=== PATIENT | male | born 1950 | race Caucasian/White ===

== ENCOUNTER 2019-05-08 07:33 | Emergency (ER) | payer MEDICARE ==
[~2019-05-08] VITALS: Ht 185.4 cm; Wt 81.0 kg
[2019-05-08 07:35] VITALS: BP 129/63
[2019-05-08] MEDS ORDERED: PRED20TA PO (07:49)
[2019-05-08] MEDS ORDERED: predniSONE 20 mg tablet PO ONE (07:50)
== END 2019-05-08 08:02 | disposition home or self-care (01) ==
LOC: ER 07:33
DX: L23.7 Allergic contact dermatitis due to plants, except food (principal); Z79.899 Other long term (current) drug therapy
CPT/HCPCS: 99283; J7512

== ENCOUNTER 2022-04-04 05:37 | Inpatient (IN) | payer MEDICARE, OTHER ==
[2022-03-28 10:37] LABS: BASOPHILS # (AUTO) 0.1 X10'3 (0-0.2); BASOPHILS % (AUTO) 0.7 % (0-1); EOSINOPHILS # (AUTO) 0.1 X10'3 (0-0.9); EOSINOPHILS % (AUTO) 1.9 % (0-6); LYMPHOCYTES # (AUTO) 1.8 X10'3 (1.1-4.8); LYMPHOCYTES % (AUTO) 24.9 % (21-51); MEAN CORPUSCULAR HGB CONC 33.8 g/dL (33.0-36.5); MEAN CORPUSCULAR VOLUME 91.6 FL (78-98); MEAN PLATELET VOLUME 7.3 FL (7.4-10.4); MONOCYTES # (AUTO) 0.6 X10'3 (0-0.9); NEUTROPHILS # (AUTO) 4.6 X10'3 (1.8-7.7); NEUTROPHILS % (AUTO) 63.5 % (42-75); PRE OP HEMATOCRIT 50.9 % (42.0-52.0); PRE OP HEMOGLOBIN 17.2 g/dL (14.0-17.9); PRE OP PLATELET COUNT 253 X10'3 (140-440); RED BLOOD COUNT 5.56 X10'6 (4.70-6.10)
[2022-03-28 11:00] LABS: ALBUMIN/GLOBULIN RATIO 1.1 (1.1-1.5); ALKALINE PHOSPHATASE 46 IU/L (46-116); BLOOD UREA NITROGEN 16 MG/DL (7-18); BUN/CREATININE RATIO 14.7 (5.4-32.0); CALCIUM 8.9 MG/DL (8.5-10.1); CHLORIDE 104 MMOL/L (99-107); CREATININE 1.09 MG/DL (0.60-1.10); PRE OP ALT 23 U/L (30-65); PRE OP ANION GAP 8 (8-16); PRE OP AST 17 U/L (10-37); PRE OP BILIRUB, TOTAL 0.7 MG/DL (0.0-1.0); PRE OP GLUCOSE 112 MG/DL (70-104); PRE OP POTASSIUM 4.2 MMOL/L (3.4-5.1); PRE OP SODIUM 139 MMOL/L (135-145); TOTAL CARBON DIOXIDE 26.9 MMOL/L (24-32); TOTAL PROTEIN 7.5 G/DL (6.4-8.2); eGFR 66 ML/MIN
[2022-03-28 11:46] LABS: PRE OP PROTIME 10.7 SECONDS (9.0-12.0)
[2022-04-04] VITALS (19 sets, daily range): BP systolic 93–131; BP diastolic 48–79
[~2022-04-04] VITALS: Ht 175.3 cm; Wt 109.8 kg
[~2022-04-04 05:37] MED LIST: SIMV-42 PO; acetaminophen 325mg tablet PO ONE; ceFAZolin inj. 2,000 MG in dextrose 5%-water 100 ML IV ONE; celeCOXIB 100mg capsule PO ONE; famotidine 20mg tablet PO ONE; gabapentin 300mg capsule PO ONE; metoclopramide 5 mg/ml inj IV ONE; oxyCODONE SR 10mg (sust. release) tab -2 tabs (20mg) PO ONE; ringers solution, lacted 1,000 ML IV SCH; tranexamic acid inj. 1,000 MG in normal saline 100ml IV soln 90 ML IV ONE; vancomycin 1,500 MG in NS 300ml IV soln IV ONE
--- NOTE | 2022-04-04 06:30 | NUR ---
PTS CSM INTACT, PULSES STRONG AND MARKED, PT STATES HE READ HIS BOOK ON JOINT REPLACEMENT AND TOOK ALL OF HIS SHOWERS PER SURGICAL PROTOCOL. Addendum: 04/04/22 at 1253 by Ashley Venegas RN Amended: Links added.
[2022-04-04] MEDS ORDERED: ondansetron/PF 4mg/2ml inj IV PRN ×2 (06:35→07:50)
[2022-04-04] MEDS ORDERED: acetaminophen 325mg tablet PO PRN (06:35)
[2022-04-04] MEDS ORDERED: magnesium hydroxide 30ml (MOM) UD suspension PO PRN (06:35)
[2022-04-04] MEDS ORDERED: bisacodyl 10mg suppository rectal RC PRN (06:35)
[2022-04-04] MEDS ORDERED: HYDROcodone/acetaminophen 10/325mg tab PO PRN (06:35)
[2022-04-04] MEDS ORDERED: HYDROmorphone inj. 0.5 MG/0.5 ML DISP.SYRIN IV PRN (06:35)
[2022-04-04] MEDS ORDERED: HYDROmorphone 1 mg/ml syringe IV PRN (06:35)
[2022-04-04] MEDS ORDERED: naloxone 0.4 mg/ml inj IV PRN (06:35)
[2022-04-04] MEDS ORDERED: diphenhydrAMINE 25mg capsule PO PRN ×2 (06:35)
[2022-04-04] MEDS ORDERED: ROPIVAcaine 0.5% (5mg/ml) 30ml vial ONE (06:39)
[2022-04-04] MEDS ORDERED: vancomycin 1,000mg inj ONE (06:39)
[2022-04-04] MEDS ORDERED: cloNIDine hcl/PF 100mcg/ml inj ONE (06:39)
[2022-04-04] MEDS ORDERED: epiNEPHrine 1 mg/ml inj ONE (06:39)
[2022-04-04] MEDS ORDERED: ketorolac trometh. 30mg/ml inj. ONE (06:39)
[2022-04-04] MEDS ORDERED: MIDAZolam 1mg/ml 10ml vial ONE ×2 (07:05→07:50)
[2022-04-04] MEDS ORDERED: fentaNYL/PF 50MCG/1 ML 2ML syringe ONE (07:15)
[2022-04-04] MEDS ORDERED: labetalol 20mg/4ml (5mg/ml) syringe IV PRN (07:50)
[2022-04-04] MEDS ORDERED: morphine 2 MG/ML inj. syringe IV PRN (07:50)
[2022-04-04] MEDS ORDERED: fentaNYL/PF 50MCG/1 ML 2ML syringe IV PRN ×2 (07:50)
[2022-04-04] MEDS ORDERED: hydrALAZINE 20mg/ml inj. IV PRN (07:50)
[2022-04-04] MEDS ORDERED: morphine 4 MG/ML inj SYRINge IV PRN (07:50)
[2022-04-04] MEDS ORDERED: ringers solution, lacted 1,000 ML IV SCH (07:50)
[2022-04-04] MEDS: gabapentin 300mg capsule PO SCH ×3 (08:00→21:33)
--- NOTE | 2022-04-04 08:39 | NUR ---
Received from OR via ORTHO BED WITH PAKIRSTEN , accompanied by Anesthesiologist NADYA and report given by Anesthesiolgist. PATIENT WITH 18G PIV IN LEFT BUENO ND RUNNING LR AT 100. LEFT HIP DRESSING/LINDY IN PLACE NO LEAKS EVIDENT AT THIS TIME. + DP TO LEFT FOOT. SCDS DONNED. VSS. 10L MASK ON WITH 100% SATURATIONS. Addendum: 04/04/22 at 0902 by Jake Jacobo RN, RN Amended: Links added.
--- NOTE | 2022-04-04 09:59 | NUR ---
Report called to receiving nurse. Transferred via ORTHO BED WITH [facility]FT .NO Belongings . HAS ALL BELONGINGS. Special Issues communicated to receiving nurse BARRETT WHARTON.CARE OF PATIENT AND REPORT HAS BEEN CALLED. ALL QUESTIONS ANSWERED TO ACCEPTING RN. PATIENT HAS MET ALL CRITERIA FOR TRANSFER TO THE [facility] ORTHO FLOOR. VSS. DRESSINGS INTACT. BED LOW, CALL LIGHT PRESENT AND 2 RAILS UP. MACHINE TOOL REBUILDER PRESENT TO ASSIST WITH SET UP. Addendum: 04/04/22 at 1010 by Jake Jacobo RN RN Amended: Links added.
[2022-04-04] MEDS ORDERED: tranexamic acid inj. 1,100 MG in normal saline 100ml IV soln 89 ML IV ONE (12:00)
[2022-04-04] MEDS: HYDROcodone/acetaminophen 10/325mg tab PO PRN ×2 (14:50→19:07)
[2022-04-04] MEDS: potassium cl 20mEq in 1/2 NS 1,000 ML IV SCH ×3 (14:52→23:56)
[2022-04-04] MEDS: cefazolin/dext.iso 2gm/100ml 100 ML IV SCH ×2 (16:06→23:56)
--- NOTE | 2022-04-04 18:45 | NUR ---
Problems reprioritized. Patient report given, questions answered & plan of care reviewed with AKIKO Newton.
[2022-04-04] MEDS ORDERED: VANCOMYCIN 1,500MG inj. 1,500 MG in normal saline 250ml IV soln 300 ML IV ONE (20:00)
[2022-04-04] MEDS ORDERED: atorvastatin 10mg tablet PO SCH (21:00)
[2022-04-04] MEDS ORDERED: sennosides 8.6mg tablet PO SCH (21:00)
[2022-04-05] MEDS: HYDROcodone/acetaminophen 10/325mg tab PO PRN (00:07)
[2022-04-05 02:00] VITALS: BP 103/63
[2022-04-05 06:00] VITALS: BP 100/56
--- NOTE | 2022-04-05 06:32 | NUR ---
Problems reprioritized. Patient report given, questions answered & plan of care reviewed with CHRISTIANO WHARTON.
[2022-04-05] MEDS: gabapentin 300mg capsule PO SCH (07:05)
[2022-04-05 07:55] LABS: BASOPHILS % (AUTO) 0.4 % (0-1); EOSINOPHILS # (AUTO) 0.2 X10'3 (0-0.9); EOSINOPHILS % (AUTO) 2.3 % (0-6); HEMATOCRIT 40.7 % (42.0-52.0); HEMOGLOBIN 13.7 g/dl (14.0-17.9); LYMPHOCYTES # (AUTO) 1.6 X10'3 (1.1-4.8); LYMPHOCYTES % (AUTO) 17.2 % (21-51); MEAN CORPUSCULAR HEMOGLOBIN 31.2 PG (27.0-31.0); MEAN CORPUSCULAR HGB CONC 33.7 g/dL (33.0-36.5); MEAN CORPUSCULAR VOLUME 92.6 FL (78-98); MEAN PLATELET VOLUME 7.9 FL (7.4-10.4); MONOCYTES # (AUTO) 0.8 X10'3 (0-0.9); MONOCYTES % (AUTO) 8.1 % (2-12); NEUTROPHILS # (AUTO) 6.7 X10'3 (1.8-7.7); PLATELET COUNT 183 X10'3 (140-440); RED BLOOD COUNT 4.39 X10'6 (4.70-6.10); RED CELL DISTRIBUTION WIDTH 14.2 % (11.5-14.5); WHITE BLOOD COUNT 9.3 X10'3 (4.5-11.0)
[2022-04-05] MEDS ORDERED: ascorbic acid 500mg tablet PO SCH (08:00)
[2022-04-05] MEDS ORDERED: multivitamins, therapeutics tablet PO SCH (08:00)
[2022-04-05 08:13] LABS: ANION GAP 7 (8-16); CHLORIDE 105 MMOL/L (99-107); POTASSIUM 4.2 MMOL/L (3.5-5.1); SODIUM 139 MMOL/L (135-145); TOTAL CARBON DIOXIDE 26.9 MMOL/L (24-32)
[2022-04-05] MEDS ORDERED: aspirin 325mg tablet PO SCH (08:30)
[2022-04-05] MEDS: potassium cl 20mEq in 1/2 NS 1,000 ML IV SCH (09:30)
[2022-04-05 10:00] VITALS: BP 90/49
--- NOTE | 2022-04-05 10:19 | NUR ---
Joint surgery consult: Pt s/p L hip surgery this admit per EMR. Pt seen by RD for written/verbal high protein diet ed w/ RD contact information provided. Pt reports has premier protein at home and will take vitamin D per MD rx once home post-op. RD encouraged pt to contact dietitian's office if further questions/concerns. Addendum: 04/05/22 at [address] Amended: Links added.
--- NOTE | 2022-04-05 11:12 | NUR ---
Patient discharged in stable condition to home with family. Belongings sent with family. Educated pt and on discharge instructions/follow up. iv removed, tip intact no complications.
[2022-04-05] MEDS ORDERED: celeCOXIB 100mg capsule PO SCH (20:00)
== END 2022-04-05 11:10 | disposition home or self-care (01) | DRG 470 ==
LOC: PAS 05:37 → ORTHO 4S 06:34
PROVIDERS: ADMIT Orthopaedic Surgery; ATTEND Orthopaedic Surgery
PROC: 0SRB06Z Replacement of Left Hip Joint with Oxidized Zirconium on Polyethylene Synthetic Substitute, Open Approach (ICD-10-PCS; principal; 2022-04-04 07:10)
DX: M16.12 Unilateral primary osteoarthritis, left hip (principal); Z79.82 Long term (current) use of aspirin
CPT/HCPCS: 36415; 72170; 80051; 80053; 82948; 85025; 85610; 85730; 86885; 86900; 86901; 87081; 87811; 97110; 97116; 97162; 97530; A4615; A7000; C1776; G0378; J0171; J0690; J0735; J1885; J2250; J2405; J2765; J2795; J3010; J3370; J3480; J3490; J7040; J7050; J7060; J7120

== ENCOUNTER 2022-04-13 14:13 | Emergency (ER) | payer MEDICARE, OTHER ==
[~2022-04-13] VITALS: Ht 175.3 cm; Wt 111.4 kg
[~2022-04-13 14:13] MED LIST changes: -acetaminophen 325mg tablet PO ONE; -ceFAZolin inj. 2,000 MG in dextrose 5%-water 100 ML IV ONE; -celeCOXIB 100mg capsule PO ONE; -famotidine 20mg tablet PO ONE; -gabapentin 300mg capsule PO ONE; -metoclopramide 5 mg/ml inj IV ONE; -oxyCODONE SR 10mg (sust. release) tab -2 tabs (20mg) PO ONE; -ringers solution, lacted 1,000 ML IV SCH; -tranexamic acid inj. 1,000 MG in normal saline 100ml IV soln 90 ML IV ONE; -vancomycin 1,500 MG in NS 300ml IV soln IV ONE
[2022-04-13 15:14] VITALS: BP 114/68
== END 2022-04-13 21:32 | disposition left against medical advice (07) ==
LOC: ER 14:14
DX: M79.89 Other specified soft tissue disorders (principal); Z53.21 Procedure and treatment not carried out due to patient leaving prior to being seen by health care provider